=== PATIENT | male | born 1935 | race Caucasian/White ===

== ENCOUNTER 2019-02-10 08:26 | Emergency (ER) | payer MEDICARE, OTHER, SELFPAY ==
[2019-02-10 08:56] VITALS: BP 158/82; PULSE 74; RESP 16; TEMP 36.6; O2SAT 97; BMI 26.1
--- NOTE | 2019-02-10 09:00 | ECG_ITS ---
Measurements Intervals [place] Rate: 75 P: 41 NH: 135 QRS: -22 QRSD: 102 T: 31 QT: 393 QTc: 439 SINUS RHYTHM INFERIOR MYOCARDIAL INFARCTION , PROBABLY OLD [40+ ms Q WAVE AND/OR ST/T AB ABNORMALITY IN II/aVF] No previous ECG available for comparison Electronically Signed On 02-10-2019 11:07:39 [employer]ATION OFFICER by Ankiat Johns M.D. [email or web address]
--- NOTE | 2019-02-10 09:02 | ED_ITS ---
HPI - Neck Pain/Injury General: Chief Complaint: Neck Pain/Injury Stated Complaint: Neck pain, abd pain, patient complains of pain to the back of her neck with nausea and sinus drainage for 1 week. Patient reports for last 2 days his neck pain has worsened and become more stiff with difficulty turning his head to the right. Patient reports history of previous cervical pain and diabetes mellitus. Patient had taken 1 day of amoxicillin earlier in the week but since it was outdated prescription his spouse said he should take no more. Patient is only taken Tylenol and ibuprofen for the last 2 days due to his discomfort. Patient denies any heart problems. Time Seen by Provider: 02/10/19 08:51 History of Present Illness: Associated symptoms: Reports nausea Review of Systems General: Reports: 10 or more systems reviewed and unremarkable except in HPI and below Const: Reports: malaise ENMT: Reports: throat pain, nasal congestion and post nasal drip GI: Reports: nausea and diarrhea (loose stool) Musc: Reports: neck pain PFSH ED PFSH: Statuses (acute, chronic, etc) shown below reflect problem list status as previously entered and may not be historically accurate Social History Smoking and tobacco status: never smoked Physical Exam Const: COMMON NORMALS: no apparent distress, average body habitus and oriented x3 HENMT: COMMON NORMALS: EAC's normal and TM's normal bilaterally; nasal mucous membranes&turbinates abnorm NOSE: nasal mucous membranes&turbinates abnorm EXTERNAL AUDITORY CANAL: EAC's normal TYMPANIC MEMBRANE: TM's normal bilaterally THROAT: posterior oropharynx abnormal erythema Neck/C-Spine: CERVICAL SPINE: Yes cervical ROM abnormal, Yes pain with cervical ROM, No cervical spine tenderness, Yes paracervical muscle tenderness and Yes trapezius muscle tenderness Lymph: LYMPHATIC: no lymphadenopathy noted Chest: COMMONS NORMALS: inspection of chest normal Resp: COMMON NORMALS: normal respiratory effort and clear to auscultation bilaterally AUSCULTATION: clear to auscultation bilaterally Cardio: COMMON NORMALS: regular rhythm RHYTHM: regular rhythm GI: COMMON NORMALS: normal to inspection, nondistended, normoactive bowel sounds and non-tender : COMMON NORMALS: Yes no CVA tenderness BLADDER/KIDNEY EXAM: Yes no CVA tenderness Back/Pelvis: COMMON NORMALS: no CVA tenderness and thoracic and lumbar spine normal to inspection Neuro: COMMON NORMALS: oriented x3 and moves all extremities Skin: COMMON NORMALS: no rashes or lesions noted and no wounds GENERAL SKIN EXAM: no rashes or lesions noted Course ED course: 1008, patient reports improvement of pain and neck mobility, wjw Vital Signs: Vital signs: Vital Signs Temperature 97.9 F 02/10/19 08:56 Pulse Rate 72 02/10/19 09:56 Respiratory Rate 17 02/10/19 09:56 Blood Pressure 150/79 02/10/19 09:56 Pulse Oximetry 96 02/10/19 09:56 MDM - Neck Pain/Injury MDM Narrative: Medical decision making narrative: Patient comes in today for complaints of neck pain and upper respiratory infection with nausea. On exam abdomen soft nontender. Skin is warm and dry color is pink. Posterior pharynx is erythematous. Patient has trapezius muscle tenderness and tightness increased on the right as compared to the left. Differential diagnosis includes muscle strain, torticollis, intervertebral disc disease, facet arthropathy. D ifferential diagnosis for upper respiratory infection, pharyngitis, influenza, gastroenteritis. Laboratory values were insignificant. Patient had improvement in pain and discomfort after injection of Toradol, dexamethasone, orphenadrine. Reviewed exam with recommendations for treatment and need for follow-up. Patient reported understanding and agreed to plan. Lab Data: Labs: Lab Results 02/10/19 02/10/19 Range/Units 09:10 09:10 WBC 4.4 (4.0-10.0) 10^3/ uL RBC 3.56 L (4.1-5.3) 10^6/u L Hgb 11.2 L (11.7-16.6) g/dL Hct 33.0 L (42.0-52.0) % MCV 92.7 (80-94) fL MCH 31.5 (28.0-34.0) pg MCHC 33.9 (30.0-36.0) g/dL RDW 12.0 L (12.1-15.1) % Plt Count 238 (130-400) 10^3/c mm MPV 8.7 (7.4-10.4) fL Neut % (Auto) 52.4 % Lymph % (Auto) 32.7 % [place] % (Auto) 10.8 % Eos % (Auto) 1.6 % Baso % (Auto) 0.5 % Neut # (Auto) 2.3 (1.8-7.7) 10^3/u L Lymph # (Auto) 1.5 (0.8-4.8) 10^3/u L [place] # (Auto) 0.5 (0.2-0.9) 10^3/u L Eos # (Auto) 0.1 (0.0-0.8) 10^3/u L Baso # (Auto) 0.0 (0.0-0.1) 10^3/u L Nucleated RBC % (a uto) 0 % Nucleated RBCs # 0.0 /100WBC Sodium 131 L (136-145) mmol/L Potassium 4.7 (3.5-5.1) mmol/L Chloride 95 L (98-107) mmol/L Carbon Dioxide 22 (22-29) mmol/L Anion Gap 18.7 (5-19) BUN 16 (8-23) mg/dL Creatinine 1.0 (0.7-1.2) mg/dL Glucose 288 H (74-106) mg/dL Calcium 9.8 (8.8-10.2) mg/Dl Total Bilirubin 0.5 (0.15-1.2) mg/dL AST 93 H (0-40) U/L ALT 119 H (0-41) U/L Alkaline Phosphata se 86 (40-130) IU/L Total Protein 6.2 L (6.6-8.7) g/dL Albumin 4.4 (3.5-5.2) g/dL Globulin 1.8 (1.3-4.6) g/dL EKG Data^: EKG 1: Attestation: I personally reviewed and interpreted this EKG as follows: (0942, no ST elevation noted, regular rate/rhythm @ 75 bpm, no ectopy) Discharge Plan Discharge Patient Disposition: Home, Self-Care Clinical Impression: Strain of neck muscle Qualifiers: Encounter type: initial encounter Qualified Code(s): S16.1XXA - Strain of muscle, fascia and tendon at neck level, initial encounter URI (upper respiratory infection) Qualifiers: URI type: unspecified viral URI Qualified Code(s): J06.9 - Acute upper respiratory infection, unspecified Condition: Stable Prescriptions: New tizanidine 4 mg tablet 4 mg PO Q8H Qty: 10 RF: 0 amoxicillin 500 mg capsule 500 mg PO TID 10 Days Qty: 30 RF: 0 ketorolac 10 mg tablet 10 mg PO Q8H PRN (Reason: pain) Qty: 10 RF: 0 No Action metformin 1,000 mg Tablet 1,000 mg PO BID RF: 0 glipizide 5 mg Tablet 5 mg PO DAILY RF: 0 lisinopril 5 mg Tablet 5 mg PO DAILY RF: 0 Fish Oil 1,000 mg (120 mg-180 mg) Capsule PO DAILY RF: 0 Referrals: [facility] [Other] Discharge Diet: Usual diet Discharge Activity: Resume usual activity Patient Instructions: Abdominal Pain - Adult, Amoxicillin (By mouth), Ketorolac (By mouth), Tizanidine (By mouth), Pain Management in the Elderly (ED), Non-pharmacological Pain Management Therapies for Adults (GEN), Acute Headache (ED), Cervical Sprain (ED), Opioid Pain Management (ED), Pain Management, Sinusitis - Acute Activity Restrictions/Additional Instructions: Drink plenty of water Activity as tolerated Healthy diet Medications as directed You may use acetaminophen for further pain control Follow-up with primary care in three days Return to ER for high fever or new concerns Interventions: ED Discharge Assessment Last Done: 02/10/19 10:15 Coding Level of Care Code ED Correctional Supervisor for Ofelia Byrd Exam Problem Focused
[2019-02-10 09:19] VITALS: BP 158/82; PULSE 74; RESP 17; O2SAT 96
[2019-02-10] MEDS: ketorolac 30 mg/mL INJ IM (09:21)
[2019-02-10] MEDS: orphenadrine 30 mg/mL Inj 2 mL 60 MG IM (09:21)
[2019-02-10] MEDS: dexamethasone 10 mg/mL INJ IM (09:21)
[2019-02-10 09:22] LABS: Basophils % 0.5 %; Eosinophils # 0.1 10^3/uL (0.0-0.8); Eosinophils % 1.6 %; Hemoglobin 11.2 g/dL (11.7-16.6); Lymphocytes # 1.5 10^3/uL (0.8-4.8); Lymphocytes % 32.7 %; Mean Corpuscular HGB Conc 33.9 g/dL (30.0-36.0); Mean Corpuscular Hemoglobin 31.5 pg (28.0-34.0); Mean Corpuscular Volume 92.7 fL (80-94); Mean Platelet Volume 8.7 fL (7.4-10.4); Monocytes # 0.5 10^3/uL (0.2-0.9); Monocytes % 10.8 %; Neutrophils # 2.3 10^3/uL (1.8-7.7); Neutrophils % 52.4 %; Nucleated Red Blood Cells % 0 %; Platelet Count 238 10^3/cmm (130-400); Red Blood Count 3.56 10^6/uL (4.1-5.3); White Blood Count 4.4 10^3/uL (4.0-10.0)
[2019-02-10 09:33] VITALS: BP 150/79; PULSE 73; RESP 17; O2SAT 97
[2019-02-10 09:35] LABS: Alanine Aminotransferase 119 U/L (0-41); Albumin Level 4.4 g/dL (3.5-5.2); Alkaline Phosphatase 86 IU/L (40-130); Anion Gap 18.7 (5-19); Aspartate Amino Transferase 93 U/L (0-40); Blood Urea Nitrogen 16 mg/dL (8-23); Calcium 9.8 mg/Dl (8.8-10.2); Carbon Dioxide 22 mmol/L (22-29); Chloride 95 mmol/L (98-107); Globulin 1.8 g/dL (1.3-4.6); Glucose 288 mg/dL (74-106); Potassium 4.7 mmol/L (3.5-5.1); Sodium 131 mmol/L (136-145); Total Bilirubin 0.5 mg/dL (0.15-1.2); Total Protein 6.2 g/dL (6.6-8.7)
[2019-02-10 09:56] VITALS: BP 150/79; PULSE 72; RESP 17; O2SAT 96
[2019-02-10 10:15] VITALS: BP 136/80; PULSE 73; RESP 17; O2SAT 95
[2019-02-10 10:23] LABS: Influenza A by IFA Negative (Negative); Influenza B by IFA Negative (Negative)
== END 2019-02-10 10:22 | disposition home or self-care (01) ==
PROVIDERS: Emergency Provider Nurse Practitioner Family
DX: S16.1XXA Strain of muscle, fascia and tendon at neck level, initial encounter (principal); J06.9 Acute upper respiratory infection, unspecified; X58.XXXA Exposure to other specified factors, initial encounter
CPT/HCPCS: 36415; 80053; 85025; 87804; 93005; 96372; 99282; J1100; J1885; J2360